=== PATIENT | female | born 1985 | race Caucasian/White ===

== ENCOUNTER 2016-07-28 09:06 | Outpatient (CLI) | payer OTHER ==
[~2016-07-28] VITALS: Ht 162.6 cm; Wt 68.5 kg
[~2016-07-28 09:06] MED LIST: NORG1TAB30
[2016-07-28 09:28] VITALS: Ht 162.6 cm; Wt 68.5 kg
[2016-07-28 09:29] VITALS: BP 137/83; PULSE 98; RESP 18
[2016-07-28] MEDS ORDERED: LABE200T25 PO (10:13)
[2016-07-28 10:23] LABS: ADD UMIC NO; URINE BILIRUBIN (Dip) NEGATIVE (NEGATIVE); URINE BLOOD (Dip) NEGATIVE (NEGATIVE); URINE COLOR YELLOW (YELLOW); URINE GLUCOSE (Dip) NEGATIVE (NEGATIVE); URINE KETONES (Dip) NEGATIVE (NEGATIVE); URINE LEUKOCYTE ESTERASE (Dip) NEGATIVE (NEGATIVE); URINE NITRITE (Dip) NEGATIVE (NEGATIVE); URINE TOTAL PROTEIN (Dip) NEGATIVE (NEGATIVE); URINE UROBILINOGEN (Dip) 0.2 E.U./dL (0.1-1.0)
[2016-07-28] MEDS ORDERED: DEXTROSE 5%-LR 1,000 ML IV SCH (11:00)
--- NOTE | 2016-07-28 11:22 | RADRPT ---
PROCEDURE: OB ultrasound for biophysical profile CLINICAL INDICATION: Biophysical profile. . TECHNIQUE: Multiple sonographic images of the pelvis were obtained. Transabdominal view of the gr avid uterus are available for review. The images were reviewed on a PACS workstation. COMPARISON: None FINDINGS: Single intrauterine gestation. Presentation: Breech Partially visualized placenta: Posterior breathing movement = 2/2 tone = 2/2 motion = 2/2 MICHELLE = 2/2 MICHLELE = 10.9 cm heart rate: 161 beats per minute IMPRESSION: Single intrauterine gestation. Biophysical profile 12/27 Breech presentation. RPTAT: AADD .Balaji Saeed MD, MD Date Time Electronically viewed and signed by .Balaji Saeed MD, on 07/28/2016 11:22 .B/
[2016-07-28 11:50] LABS: ADD SCAN DIFF NO
[2016-07-28 11:59] LABS: BASOPHILS % 0.2 % (0.0-2.0); EOSINOPHILS % 0.3 % (0.0-7.0); HEMATOCRIT 35.8 % (37.0-47.0); HEMOGLOBIN 11.7 g/dl (12.0-16.0); LYMPHOCYTES # 1.8 10^3/ul (0.8-2.9); LYMPHOCYTES % 19.6 % (15.0-51.0); MEAN CORPUSCULAR HGB CONC 32.7 g/dl (32.0-37.0); MEAN CORPUSCULAR VOLUME 94.7 fl (82.0-101.0); MEAN PLATELET VOLUME 10.7 fl (7.4-10.4); MONOCYTE # 0.5 10^3/ul (0.3-0.9); MONOCYTES % 5.5 % (0.0-11.0); NEUTROPHIL # 6.8 10^3/ul (1.6-7.5); NEUTROPHILS % 73.5 % (39.0-77.0); PLATELET COUNT 249 10^3/UL (140-415); RED BLOOD COUNT 3.78 10^6/ul (4.20-5.40); RED CELL DISTRIBUTION WIDTH 13.8 % (11.5-14.5); WHITE BLOOD COUNT 9.2 10^3/ul (4.8-10.8)
--- NOTE | 2016-07-28 12:57 | CONS ---
Date/Time of Note Date/Time of Note DATE: 07/28/16 TIME: 12:47 Consultation Date/Type/Reason Admit Date/Time July 28, 2016 OB triage consultation report Initial Consult Date This patient is a 31 years old 2 para 1 0 living 0. Her due date is November 08, 2016 which makes her 25 weeks and 2 days today She came to OB triage complaining of a burning sensation in her genital area and due to elevated blood pressure during this to be evaluated. she is currently taking labetalol 200 mg 3 times daily. Her previous delivery was normal vaginal On general examination she is a well-developed well-nourished lady in no acute distress. Her blood pressure is 137/83 pulse rate 98 respiration 18 temperature 98.1 Her ear nose throat appears to be normal neck is normal no neck vein distention no thyromegaly no lymph node enlargement anywhere in the body Her chest is clear to auscultation. Abdomen is soft heart tone is normal with fairly good variation. On examination of the genital area no evidence of any lesion , ulceration , edema or other lesions could be visualized . No vaginal bleeding . Lab and ultrasound report her urinalysis was negative no RBCs or leukocyte was reported no proteinuria no ketonuria her CBC just showed slight anemia hemoglobin 11.7 hematocrit 35.8 platelet count of 249,000. On ultrasound study report was single intrauterine gestation fetus in breech presentation placenta posterior Her biophysical profile was 8 out of 8. Amniotic fluid index was reported 10.9 cm Laboratory Tests Test 07/28/16 09:10 07/28/16 11:00 Urine Bilirubin NEGATIVE Urine Clarity CLEAR Urine Color YELLOW Urine Glucose NEGATIVE% Urine Hemoglobin NEGATIVE Urine Ketones NEGATIVE Urine Leukocyte Esterase NEGATIVE Urine Nitrite NEGATIVE Urine Specific [place] 1.025 Urine Total Protein NEGATIVE Urine Urobilinogen 0.2 E.U./dL Urine pH 6.0 Basophils # 0.010^3/ul Basophils % 0.2% Eosinophils # 0.010^3/ul Eosinophils % 0.3% Hematocrit 35.8% Hemoglobin 11.7g/dl Lymphocytes # 1.810^3/ul Lymphocytes % 19.6% Mean Corpuscular Hemoglobin 31.0pg Mean Corpuscular Hemoglobin Concent 32.7g/dl Mean Corpuscular Volume 94.7fl Mean Platelet Volume 10.7fl Monocytes # 0.510^3/ul Monocytes % 5.5% Neutrophils # 6.810^3/ul Neutrophils % 73.5% Nucleated Red Blood Cells # 0.010^3/ul Nucleated Red Blood Cells % 0.0/100WBC Platelet Count 44158^3/UL Red Blood Count 3.7810^6/ul Red Cell Distribution Width 13.8% White Blood Count 9.210^3/ul Current Medications Medications (Trade) Dose Ordered Sig/Everardo Route PRN Reason Start Time Stop Time Status Last Admin Dose Admin Dextrose/Lactated Ringer's (D5-Lr) 1,000 ml @ 150 mls/hr Q6H40M IV 07/28/16 11:00 07/28/16 11:04 150 MLS/HR 24 HR Interval Summary Constitutional: No chills, No diaphoresis, No disoriented, No febrile, No improved, No no complaints, No other, No poor po, No requiring IVF, No requiring O2 Detailed Summary Eyes: No discharge, No no complaints, No other, No pain, No redness, No visual change ENT: No bleeding, No congestion, No discharge, No dysphagia, No no complaints, No other, No pain, No sore throat Respiratory: No cough, No no complaints, No other, No pain, No pleuritic pain, No shortness of breath, No sputum, No wheezing Cardiovascular: No chest pain, No edema, No lightheadedness, No no complaints, No orthopenea, No other, No palpitations, No paroxysmal nocturnal dyspnea Gastrointestinal: No blood, No constipation, No decreased appetite, No diarrhea , No flatus, No nausea, No no complaints, No other, No pain, No passing stool, No vomiting Genitourinary: other (Slight burning sensation up the periurethral area no visible lesion), No bleeding, No discharge, No dysuria, No flank pain, No hematuria, No no complaints Musculoskeletal: No back pain, No bone/joint pain, No neck pain, No no complaints, No other, No restricted range of motion, No swelling Skin: No bruising, No erythema, No laceration, No no complaints, No other, No pruritis, No rash, No skin lesions Neurologic: No confusion, No dizziness, No focal-weakness, No headache, No no complaints, No other, No seizure, No syncope Endocrine: No dry skin, No no complaints, No other, No polydypsia, No polyuria , No temp intolerance Lymphatic: No adenopathy, No lymphadema, No no complaints, No other, No tender nodes Psychological: No anxiety, No confusion, No depression, No nl mood/affect, No no complaints, No other, No suicidal Immunologic: No immunodeficiency, No no complaints, No other, No pruritis, No rhinitis, No urticaria Additional Comments With these positive finding patient was reassured regarding any lesion in the vulvar area 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 she will also continue the labetalol 200 mg 3 times daily end of dictation thank Exam/Review of Systems Vital Signs Vitals Vital Signs Date Time Temp Pulse Resp B/P Pulse Ox O2 Delivery O2 Flow Rate FiO2 07/28/16 09:29 98.1 98 18 137/83 Results Result Diagram: 07/28/16 1100 Results 24 hrs Laboratory Tests Test 07/28/16 09:10 07/28/16 11:00 Urine Bilirubin NEGATIVE Urine Clarity CLEAR Urine Color YELLOW Urine Glucose NEGATIVE Urine Hemoglobin NEGATIVE Urine Ketones NEGATIVE Urine Leukocyte Esterase NEGATIVE Urine Nitrite NEGATIVE Urine Specific [place] 1.025 Urine Total Protein NEGATIVE Urine Urobilinogen 0.2 E.U./dL Urine pH 6.0 Basophils # 0.0 Basophils % 0.2 Eosinophils # 0.0 Eosinophils % 0.3 Hematocrit 35.8 L Hemoglobin 11.7 L Lymphocytes # 1.8 Lymphocytes % 19.6 Mean Corpuscular Hemoglobin 31.0 Mean Corpuscular Hemoglobin Concent 32.7 Mean Corpuscular Volume 94.7 Mean Platelet Volume 10.7 H Monocytes # 0.5 Monocytes % 5.5 Neutrophils # 6.8 Neutrophils % 73.5 Nucleated Red Blood Cells # 0.0 Nucleated Red Blood Cells % 0.0 Platelet Count 249 Red Blood Count 3.78 L Red Cell Distribution Width 13.8 White Blood Count 9.2 Medications Medications Current Medications Dextrose/Lactated Ringer's (D5-Lr) 1,000 ml @ 150 mls/hr Q6H40M IV Last administered on 07/28/16t 11:04; Admin Dose 150 MLS/HR; Start 07/28/16 at 11:00 WILLIAMS ENAMORADO MD Jul 28, 2016 12:57
== END 2016-07-28 13:41 | disposition home or self-care (01) ==
LOC: OBT 09:06 → L-D 09:07 → OBT 13:41
PROVIDERS: ATTEND Obstetrics & Gynecology
DX: O26.892 Other specified pregnancy related conditions, second trimester (principal); R10.2 Pelvic and perineal pain; R03.0 Elevated blood-pressure reading, without diagnosis of hypertension; O76 Abnormality in fetal heart rate and rhythm complicating labor and delivery; Z3A.25 25 weeks gestation of pregnancy
CPT/HCPCS: 36415; 76818; 81003; 85025; 87086; 96360; 96361; J7121; Z7500; G0463